=== PATIENT | female | born 1965 | race Caucasian/White ===

== ENCOUNTER 2021-12-11 01:51 | Emergency (ER) | payer OTHER, SELFPAY ==
[~2021-12-11] VITALS: Ht 162.6 cm; Wt 79.4 kg
[2021-12-11 01:51] VITALS: BP_SYST 143
[~2021-12-11 01:51] MED LIST: FLUV100C PO
[2021-12-11] MEDS ORDERED: EPINEPHrine 1 MG/ML VIAL IM ONE (02:15)
[2021-12-11] MEDS ORDERED: METHYLPREDNISOLONE SOD SUCC 40 MG/ML VIAL IVP ONE (02:30)
[2021-12-11] MEDS ORDERED: FAMOTIDINE PF 20 MG/2 ML VIAL IVP ONE (02:30)
[2021-12-11] MEDS ORDERED: EPINEPHrine 1 MG/ML AMP ONE (02:30)
[2021-12-11] MEDS ORDERED: DIPHENHYDRAMINE INJ 50 MG/ML VIAL IVP ONE (02:30)
[2021-12-11] MEDS ORDERED: methylPREDNISolone SOD SUCC/PF 62.5 MG/ML VIAL ONE (02:57)
[2021-12-11] MEDS ORDERED: DIPH25CA83 PO (03:57)
[2021-12-11] MEDS ORDERED: FAMO-132 PO (03:57)
[2021-12-11] MEDS ORDERED: PRED20TA PO (03:57)
[2021-12-11] MEDS ORDERED: EPIN0.3P3 IM (03:57)
[2021-12-11 05:20] VITALS: BP_SYST 132
== END 2021-12-11 05:20 | disposition home or self-care (01) ==
LOC: SED 01:51
DX: U07.1 COVID-19 (principal); T78.3XXA Angioneurotic edema, initial encounter; Z79.899 Other long term (current) drug therapy
CPT/HCPCS: 36415; 87426; 96372; 96374; 96375; 99284; J0171; J1200; J2930; J3490

== ENCOUNTER 2022-03-07 16:06 | Inpatient (IN) | payer OTHER ==
[~2022-03-07] VITALS: Ht 162.6 cm; Wt 82.8 kg
[~2022-03-07 16:06] MED LIST changes: +DIPH25CA83 PO; +EPIN0.3P3 IM; +FAMO-132 PO; +PRED20TA PO
[2022-03-07 16:09] VITALS: BP_SYST 149
[2022-03-07] MEDS ORDERED: NACL 0.9% 1,000 ML IV ONE ×2 (16:30→19:30)
[2022-03-07] MEDS ORDERED: METOPROLOL TARTRATE 5 MG/5 ML AMPUL IVP ONE ×2 (16:45)
[2022-03-07 16:54] LABS: BASOPHILS % (AUTO) 0.6 % (0.0-2.0); EOSINOPHILS # (AUTO) 0.1 K/uL (0.0-0.4); EOSINOPHILS % (AUTO) 2.9 % (0.0-4.0); HEMATOCRIT 41.4 % (36-48); HEMOGLOBIN 13.6 g/dL (12.0-16.0); LYMPHOCYTES # (AUTO) 1.5 K/uL (1.0-5.5); LYMPHOCYTES % (AUTO) 32.4 % (20.5-51.5); MEAN CORPUSCULAR HEMOGLOBIN 24 pg (27-31); MEAN CORPUSCULAR HGB CONC 33 % (32-36); MEAN CORPUSCULAR VOLUME 74 fL (79.0-98.0); MONOCYTES # (AUTO) 0.4 K/uL (0.0-1.0); MONOCYTES % (AUTO) 8.6 % (1.7-9.3); NEUTROPHILS # (AUTO) 2.5 K/uL (1.8-7.7); NEUTROPHILS % (AUTO) 55.5 % (40.0-70.0); PLATELET COUNT (AUTO) 181 K/uL (130-430); RED BLOOD CELL COUNT(AUTO) 5.63 MIL/uL (4.2-6.2); RED CELL DISTRIBUTION WIDTH 14.7 % (9.0-15.0); WHITE BLOOD COUNT (AUTO) 4.6 K/uL (4.8-10.8)
[2022-03-07 17:12] LABS: ANION GAP 9 (5-15); CALCIUM 9.5 mg/dL (8.4-11.0); CHLORIDE 102 mmol/L (98-107); CREATININE 0.85 mg/dL (0.55-1.30); GLUCOSE 93 mg/dL (70-99); POTASSIUM 3.9 mmol/L (3.5-5.1); SODIUM SERUM 140 mmol/L (136-145); UREA NITROGEN, BLOOD 16 mg/dL (8-21)
[2022-03-07 17:21] LABS: ALANINE AMINOTRANSFERASE 23 U/L (12-78); ASPARTATE AMINOTRANSFERASE 17 U/L (10-37); PHOSPHORUS 3.7 mg/dL (2.7-4.5); THYROID STIMULATING HORMONE 1.88 uIu/mL (0.36-3.74); TOTAL BILIRUBIN 0.4 mg/dL (0.0-1.0)
[2022-03-07 17:24] LABS: GFR AFRICAN AMERICAN 90 mL/min (>90)
[2022-03-07] MEDS ORDERED: METOPROLOL TARTRATE 25 MG TABLET PO ONE (17:30)
[2022-03-07] MEDS ORDERED: dilTIAZem HCL IVP 5 MG/ML VIAL IVP ONE (19:00)
[2022-03-07 23:00] VITALS: BP_SYST 110
[2022-03-08] VITALS (20 sets, daily range): BP systolic 82–111
[2022-03-08] MEDS ORDERED: NACL 0.9% 1,000 ML IV SCH (01:15)
[2022-03-08] MEDS ORDERED: NS 250 ML IV ONE (01:30)
[2022-03-08 07:36] LABS: BASOPHILS % (AUTO) 0.5 % (0.0-2.0); EOSINOPHILS # (AUTO) 0.1 K/uL (0.0-0.4); EOSINOPHILS % (AUTO) 3.3 % (0.0-4.0); HEMATOCRIT 36.4 % (36-48); HEMOGLOBIN 11.5 g/dL (12.0-16.0); LYMPHOCYTES # (AUTO) 1.6 K/uL (1.0-5.5); LYMPHOCYTES % (AUTO) 39.3 % (20.5-51.5); MEAN CORPUSCULAR HEMOGLOBIN 24 pg (27-31); MEAN CORPUSCULAR HGB CONC 32 % (32-36); MEAN CORPUSCULAR VOLUME 75 fL (79.0-98.0); MONOCYTES # (AUTO) 0.4 K/uL (0.0-1.0); NEUTROPHILS # (AUTO) 1.8 K/uL (1.8-7.7); NEUTROPHILS % (AUTO) 45.9 % (40.0-70.0); PLATELET COUNT (AUTO) 138 K/uL (130-430); RED BLOOD CELL COUNT(AUTO) 4.86 MIL/uL (4.2-6.2); RED CELL DISTRIBUTION WIDTH 15.1 % (9.0-15.0)
[2022-03-08 07:45] LABS: CALCIUM 7.7 mg/dL (8.4-11.0); CREATININE 0.7 mg/dL (0.55-1.30); POTASSIUM 3.8 mmol/L (3.5-5.1)
[2022-03-08] MEDS: DILTIAZEM HCL 120 MG CAP.SR.24H PO SCH ×2 (09:00→11:24)
[2022-03-08] MEDS ORDERED: DILTIAZEM HCL 120 MG CAP.SR.24H PO ONE (11:24)
[2022-03-08] MEDS ORDERED: DILT120C89 PO (12:30)
== END 2022-03-08 13:00 | disposition home or self-care (01) | DRG 310 ==
LOC: SED 16:06 → SIC 20:14
PROVIDERS: ADMIT Family Medicine; ATTEND Family Medicine
DX: I47.1 Supraventricular tachycardia (principal); Z20.822 Contact with and (suspected) exposure to COVID-19; Z82.0 Family history of epilepsy and other diseases of the nervous system; Z79.899 Other long term (current) drug therapy
CPT/HCPCS: 36415; 71045; 80048; 80053; 83735; 83880; 84100; 84443; 84484; 85025; 87081; 93306; 96374; 96375; 99291; J3490; J7060